=== PATIENT | male | born 1965 | race Caucasian/White ===

== ENCOUNTER → 2016-04-19 | Outpatient (CLI) | payer MEDICAID ==
--- NOTE | 2016-04-19 18:47 | DX ---
PA and Lateral Chest History: Cough, fever. Comparison: Abdomen series 07/11/2013. Findings: There is mild peribronchial thickening without focal consolidation. There is no pneumothora x or pleural effusion. The heart and pulmonary vasculature are normal. Mild dextroscoliosis of the th oracic spine is present with mild degenerative change. Impression: Mild peribronchial thickening suggesting airways disease/bronchitis.
== END ==
LOC: FIMAGING 14:15
PROVIDERS: ATTEND Nurse Practitioner Family
DX: R05 Cough (principal); R50.9 Fever, unspecified; R92.8 Other abnormal and inconclusive findings on diagnostic imaging of breast; J20.9 Acute bronchitis, unspecified